=== PATIENT | female | born 1995 | race African-American/Black ===

== ENCOUNTER 2017-01-30 16:46 | Emergency (ER) | payer MEDICAID, SELFPAY ==
[2017-01-30 17:45] LABS: Bilirubin Negative (Negative); Blood, Urine Negative (Negative); Glucose, Urine (Dipstick) Negative (Negative); Ketone, Urine Negative (Negative); Nitrite Negative (Negative); Protein, Urine (Dipstick) Negative (Neg-Trace); Urobilinogen 0.2 mg/dL (0.2-1.0)
[2017-01-30 18:03] LABS: #Basophils 0.1 thou/uL (0.0-0.2); #Eosinphils 0.2 thou/uL (0.0-0.7); #Lymphocytes 2.7 thou/uL (1.20-3.40); #Monocytes 0.5 thou/uL (0.11-0.59); #Neutrophils 2.7 thou/uL (1.40-6.50); %Basophils 0.9 % (0.0-1.0); %Eosinophils 2.6 % (0.0-10.0); %Lymphocytes 44.3 % (28.0-48.0); %Monocytes 8.4 % (0.0-4.0); Hematocrit 41.1 % (36.0-47.0); Mean Platelet Volume 7.2 fL (7.4-10.4); Red Blood Cell (RBC) Count 4.44 mill/uL (4.00-5.20); White Blood Cell (WBC) Count 6.2 thou/uL (4.8-10.8)
[2017-01-30 18:24] LABS: ALT (SGPT) 9 U/L (8-55); AST (SGOT) 16 U/L (5-34); Alkaline Phosphatase 73 U/L (40-150); Anion Gap 14 mmol/L (10-20); BUN (Urea Nitrogen) 7 mg/dL (7.0-18.7); Bilirubin, Total 0.3 mg/dL (0.2-1.2); Calc. Creatinine Clearance 0 mL/min (70-130); Carbon Dioxide 21 mmol/L (22-29); Chloride 108 mmol/L (98-107); Estimated GFR-MDRD 90; Globulin 3.2 g/dL (2.4-3.5)
--- NOTE | 2017-01-30 18:47 | ULT ---
PELVIC ULTRASOUND 01/30/17 HISTORY: Cramping and vaginal bleeding, onset 4 a.m. COMPARISON: None. TECHNIQUE: Transabdominal and endovaginal imaging of the pelvis is performed. Ovaries are interrogated with gra y scale, color flow, doppler imaging and spectral waveform analysis. FINDINGS: The uterus is identified measuring 7.8 x 5.3 x 6.2 cm. Within the endometrium, there is a gestationa l sac, yolk sac, and pole. [place]-rump length is 0.3 cm corresponding to a gestational age of 5 weeks, 6 days. heart tones are not appreciated at this time. Subtle heterogeneous echotexture adjacent to the gestational sac may represent small subchorionic hemorrhages. Left ovary is not appreciated. Right ovary has a normal echotexture measuring 3.5 x 1.8 x 3.0 cm. There is a small amount of fluid in the right adnexa and cul-de-sac. No significant mass or fluid in the left adnexa. OVARIAN DOPPLER: There is vascular flow to the right ovary. IMPRESSION: 1. Intrauterine gestation with a crown-rump length corresponding to a gestational age of 5 week s, 6 days. 2. heart tones are not appreciated. 3. Small amount of free fluid in the pelvis. 4. The constellation of findings suggests a possible early intrauterine . Followup ult rasound and serial beta HCGs are recommended to ensure a viable . POS: [facility]
== END 2017-01-30 19:46 | disposition home or self-care (01) ==
LOC: ERS 16:46
DX: O20.0 Threatened abortion (principal)
CPT/HCPCS: 36415; 76856; 80053; 81003; 84702; 84703; 85025; 86900; 86901; 87480; 87491; 87510; 87591; 87660

== ENCOUNTER 2017-04-08 18:23 | Emergency (ER) | payer MEDICAID, OTHER ==
[2017-04-08 18:54] LABS: #Basophils 0.1 thou/uL (0.0-0.2); #Eosinphils 0.2 thou/uL (0.0-0.7); #Lymphocytes 2.4 thou/uL (1.20-3.40); #Monocytes 0.5 thou/uL (0.11-0.59); #Neutrophils 3.6 thou/uL (1.40-6.50); %Basophils 1.2 % (0.0-1.0); %Eosinophils 3.5 % (0.0-10.0); %Lymphocytes 35.6 % (28.0-48.0); %Monocytes 7.4 % (0.0-4.0); %Neutrophils 52.4 % (31.0-61.0); Hemoglobin 13.6 g/dL (12.0-16.0); Mean Corpuscular HGB CONC 33.4 g/dL (32.0-36.0); Mean Corpuscular Hemoglobin 29.9 pg (25.0-35.0); Mean Corpuscular Volume 89.4 fl (77.0-87.0); Mean Platelet Volume 7.8 fL (7.4-10.4); Platelet Count 253 thou/uL (130-400); RBC Distribution Width 11.7 % (11.5-14.5); Red Blood Cell (RBC) Count 4.54 mill/uL (4.00-5.20); White Blood Cell (WBC) Count 6.8 thou/uL (4.8-10.8)
[2017-04-08 19:16] LABS: ALT (SGPT) 9 U/L (8-55); AST (SGOT) 14 U/L (5-34); Albumin 3.9 g/dL (3.5-5.0); Alkaline Phosphatase 59 U/L (40-150); Anion Gap 11 mmol/L (10-20); BUN (Urea Nitrogen) 6 mg/dL (7.0-18.7); Bilirubin, Total 0.2 mg/dL (0.2-1.2); Calc. Creatinine Clearance 0 mL/min (70-130); Calcium 9.3 mg/dL (7.8-10.44); Carbon Dioxide 23 mmol/L (22-29); Chloride 106 mmol/L (98-107); Estimated GFR-MDRD Greater than 90; Globulin 3.2 g/dL (2.4-3.5); Glucose 77 mg/dL (70-105); Potassium 3.6 mmol/L (3.5-5.1); Protein, Total 7.1 g/dL (6.0-8.3); Sodium 136 mmol/L (136-145)
== END 2017-04-08 23:10 | disposition home or self-care (01) ==
LOC: ERS 18:23
DX: O99.352 Diseases of the nervous system complicating pregnancy, second trimester (principal); G44.209 Tension-type headache, unspecified, not intractable
CPT/HCPCS: 36415; 80053; 84702; 85025; 85652; 86140; 99284

== ENCOUNTER 2017-09-14 16:19 | Day surgery (SDC) | payer OTHER ==
[2017-09-14 17:07] VITALS: BMI 35.7
[2017-09-14 17:54] LABS: Bilirubin Negative (Negative); Blood, Urine Negative (Negative); Clarity CLEAR (Clear); Glucose, Urine (Dipstick) Negative (Negative); Leukocyte Small (Negative); Nitrite Negative (Negative); Protein, Urine (Dipstick) Negative (Neg-Trace); Specific Gravity, Urine 1.019 (1.002-1.036)
[2017-09-14 17:56] LABS: Bacteria/HPF Rare-Few HPF (None Seen); Hyaline Casts/LPF 0-3 HYALINE CAST LPF (0-3 Hyaline); Pathc Cast-AUWi Flag 0.14 (0-2.49); WBC/HPF 0-3 HPF (0-3)
--- NOTE | 2017-09-14 22:58 | PRG ---
DATE OF ENCOUNTER: 09/14/2017 OB ER ENCOUNTER PRIMARY OB: Andrez Mccauley M.D. CHIEF COMPLAINT: Abdominal pains. HISTORY OF PRESENT ILLNESS: The patient is a 22-year-old, G1, P0 female with an intrauterine pregnan cy at 37 weeks and 4 days, who is presenting to Labor and Delivery with lower abdominal pains in her groin, particularly on the right side that is associated with movement and activity, getting out of b ed, and lifting things. She also reporting she is having urinary urgency and difficulty voiding and pelvic pressure. The patient denies any significant uterine contractions, vaginal bleeding, leakage of fluid. She denies fever, fall, headache, chest pain, shortness of breath. She denies nausea, vom iting. She is experiencing some diarrhea. Denies constipation. Denies new rashes, hip problems, kn ee problems, muscle weakness, vaginal bleeding, leakage of fluid. She does have urinary dysuria and difficulty voiding. PAST MEDICAL HISTORY: Negative. PAST SURGICAL HISTORY: Negative. OBSTETRIC HISTORY: This is her first . SOCIAL HISTORY: Denies drug, alcohol or tobacco use. ALLERGIES: No known drug allergies. MEDICATIONS: vitamins. OB LABS: Blood type O positive, HIV is nonreactive, syphilis is nonreactive. Hepatitis B surface an tigen is nonreactive. She is rubella immune. One-hour Glucola is within normal limits. REVIEW OF SYSTEMS: Per HPI. PHYSICAL EXAMINATION: VITAL SIGNS: Blood pressure is 113/56, heart rate of 86, respiratory rate of 20, satting 99% on room air, temperature 99.2. GENERAL: She appears to be in no acute distress. She is alert and oriented, cooperative and pleasan t to interact with. HEAD: Normocephalic, atraumatic. LUNGS: Clear to auscultation bilaterally. HEART: Regular rate and rhythm. ABDOMEN: Gravid and soft. She does have some tenderness to palpation on the right inguinal region a nd lower pelvic region. EXTREMITIES: Nontender, nonedematous. PELVIC: Cervix is closed, thick and high. She has no CVA tenderness. LABORATORY DATA: heart tracing performed for abdominal pain in , baseline is noted to be in the 130s with moderate long-term variability, positive 15 x 15 accelerations, no decelerations . She is having some irritability with infrequent contractions. Duration of the tracing is approxim ately 45 minutes. UA was performed with negative protein, 15 ketones, negative nitrites, small leuko cyte esterase, 0-3 white blood cells, 4-6 squamous cells, rare to few bacteria. ASSESSMENT AND PLAN: The patient is a 22-year-old female with an intrauterine at 37 weeks and 4 days with false labor, musculoskeletal pains, and no evidence of urinary tract infection. Fetu s has a reactive NST and category 1 tracing. The patient is being discharged to home with precaution s and reassurance, and has instructions to follow up with Dr. Mccauley this week as scheduled.
== END 2017-09-14 18:22 | disposition home or self-care (01) ==
LOC: L&D/OP 16:19
PROVIDERS: ATTEND Obstetrics & Gynecology
DX: O47.1 False labor at or after 37 completed weeks of gestation (principal); Z3A.37 37 weeks gestation of pregnancy
CPT/HCPCS: 81001